=== PATIENT | male | born 1980 | race African-American/Black ===

== ENCOUNTER 2019-08-01 13:35 | Emergency (ER) | payer OTHER ==
[~2019-08-01] VITALS: Ht 170.2 cm; Wt 70.3 kg
[2019-08-01] MEDS ORDERED: HUMULIN R100 UNIT/M IV PUSH (13:45)
[2019-08-01 14:08] LABS: ABSOLUTE NEUTROPHILS 4.9 thou/uL (1.4-8.2); BASOPHILS 1.7 % (0.0-2.0); EOSINOPHILS 1.6 % (0.0-3.0); HEMATOCRIT 38.4 % (42.0-52.0); HEMOGLOBIN 12.5 gm/dL (14.0-18.0); LYMPHOCYTES 30.7 % (24.0-44.0); MCH 26.5 pg (26.0-34.0); MCHC 32.5 g/dL (28.0-37.0); MCV 81.5 fL (80.0-100.0); MONOCYTES 6.2 % (1.0-8.0); PLATELET COUNT 359 thou/uL (150-400); POLYS 59.8 % (36.0-66.0); RBC 4.71 mil/uL (4.50-6.00); RDW 13.9 % (10.5-14.5); WBC 8.3 thou/uL (4.0-11.0)
[2019-08-01 14:16] LABS: CALCIUM 9.4 mg/dL (8.5-10.1); CREATININE 2.8 mg/dL (0.7-1.3); POTASSIUM 3.1 mmol/L (3.5-5.1)
[2019-08-01 14:22] LABS: ALBUMIN 3.7 g/dL (3.4-5.0); TOTAL BILIRUBIN 0.1 mg/dL (<0.1-1.0)
[2019-08-01 17:40] VITALS: BP 129/77
--- NOTE | 2019-08-02 08:02 | EKG ---
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1980 Requested By: Kvng Daugherty Order Number: [id number] MD: Ruddy Ridley Measurements Intervals [place] Rate: 96 P: 78 IN: 115 QRS: 76 QRSD: 86 T: -33 QT: 375 QTc: 474 Interpretive Statements Sinus rhythm Borderline short IN interval Probable left atrial enlargement Probable left ventricular hypertrophy Borderline T abnormalities, inferior leads No previous ECG available for comparison Electronically Signed On 08-02-2019 8:02:01 CDT by Ruddy Ridley [email or web address] <ELECTRONICALLY SIGNED> By: Ruddy Ridley MD 08/02/19 0802 D: 09/1448 1449 Ruddy Ridley MD /JUAN CARLOS
== END 2019-08-01 17:40 | disposition home or self-care (01) ==
LOC: ER 13:35
PROVIDERS: Physician Assistant
DX: N17.9 Acute kidney failure, unspecified (principal); E10.65 Type 1 diabetes mellitus with hyperglycemia; R11.10 Vomiting, unspecified; F17.210 Nicotine dependence, cigarettes, uncomplicated; Z88.5 Allergy status to narcotic agent

== ENCOUNTER 2020-02-27 05:10 | Emergency (ER) | payer BC, OTHER ==
[~2020-02-27] VITALS: Ht 170.2 cm; Wt 70.3 kg
[~2020-02-27 05:10] MED LIST: HUMULIN R100 UNIT/M IV PUSH
[2020-02-27 05:53] LABS: ABSOLUTE NEUTROPHILS 7.5 thou/uL (1.4-8.2); BASOPHILS 1.2 % (0.0-2.0); EOSINOPHILS 0.8 % (0.0-3.0); HEMATOCRIT 42.5 % (42.0-52.0); HEMOGLOBIN 13.7 gm/dL (14.0-18.0); LYMPHOCYTES 16.2 % (24.0-44.0); MCH 25.9 pg (26.0-34.0); MCHC 32.2 g/dL (28.0-37.0); MCV 80.4 fL (80.0-100.0); MONOCYTES 2.8 % (1.0-8.0); PLATELET COUNT 366 thou/uL (150-400); RBC 5.29 mil/uL (4.50-6.00); RDW 15.3 % (10.5-14.5); WBC 9.4 thou/uL (4.0-11.0)
[2020-02-27 06:01] LABS: ANION GAP 14 mmol/L (7-16); BUN 26 mg/dL (7-18); CALCIUM 9.2 mg/dL (8.5-10.1); CHLORIDE 101 mmol/L (98-107); CO2 23 mmol/L (21-32); CREATININE 2.2 mg/dL (0.7-1.3); GLUCOSE 241 mg/dL (74-106); POTASSIUM 5.3 mmol/L (3.5-5.1); SODIUM 138 mmol/L (136-145)
[2020-02-27 06:12] LABS: ALBUMIN 4.3 g/dL (3.4-5.0); LIPASE 180 U/L (73-393); SGOT 36 U/L (15-37); SGPT 37 U/L (30-65); TOTAL BILIRUBIN 0.2 mg/dL (<0.1-1.0); TROPONIN-I <0.06 ng/mL (<0.06)
--- NOTE | 2020-02-27 08:37 | EKG ---
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1980 Requested By: Ludwin Gonzalez Order Number: [id number] MD: Vin Jackson Measurements Intervals [place] Rate: 116 P: 72 [place]: 116 QRS: 79 QRSD: 79 T: 18 QT: 310 QTc: 431 Interpretive Statements Sinus tachycardia Probable left ventricular hypertrophy Compared to ECG 08/01/2019 14:49:42 T wave abnormalities no longer present Electronically Signed On 02-27-2020 8:35:45 CDT by Vin Jackson [email or web address] <ELECTRONICALLY SIGNED> By: Vin Jackson MD, LOCATED WITHIN [facility] 02/27/20 0835 6 Vin Jackson MD, FACC /EPI
[2020-02-27] MEDS ORDERED: REGLAN 5 MG TAB5 MG PO (11:36)
[2020-02-27] MEDS ORDERED: ZOFRAN ODT4 MG PO (11:58)
[2020-02-27 12:18] VITALS: BP 169/102
== END 2020-02-27 12:19 | disposition home or self-care (01) ==
LOC: ER 05:10
PROVIDERS: Emergency Medicine
DX: E10.43 Type 1 diabetes mellitus with diabetic autonomic (poly)neuropathy (principal); K31.84 Gastroparesis; R11.2 Nausea with vomiting, unspecified; F17.210 Nicotine dependence, cigarettes, uncomplicated; Z79.4 Long term (current) use of insulin; Z88.6 Allergy status to analgesic agent

== ENCOUNTER 2020-03-02 15:22 | Emergency (ER) | payer BC, OTHER ==
[~2020-03-02] VITALS: Ht 172.7 cm; Wt 68.5 kg
[~2020-03-02 15:22] MED LIST changes: +REGLAN 5 MG TAB5 MG PO; +ZOFRAN ODT4 MG PO
[2020-03-02] MEDS ORDERED: NAPROSYN500 MG PO (16:44)
[2020-03-02 17:00] VITALS: BP 123/81
== END 2020-03-02 17:01 | disposition home or self-care (01) ==
LOC: ER 15:22
DX: M70.831 Other soft tissue disorders related to use, overuse and pressure, right forearm (principal); E10.9 Type 1 diabetes mellitus without complications; F17.210 Nicotine dependence, cigarettes, uncomplicated; Z79.899 Other long term (current) drug therapy; Z88.8 Allergy status to other drugs, medicaments and biological substances; Y93.89 Activity, other specified

== ENCOUNTER 2021-01-06 10:07 | Emergency (ER) | payer OTHER ==
[~2021-01-06] VITALS: Ht 170.2 cm; Wt 69.0 kg
[~2021-01-06 10:07] MED LIST changes: +NAPROSYN500 MG PO
[2021-01-06 12:01] VITALS: BP 122/70
== END 2021-01-06 12:01 | disposition home or self-care (01) ==
LOC: ER 10:07
DX: M54.12 Radiculopathy, cervical region (principal); M54.16 Radiculopathy, lumbar region; E10.9 Type 1 diabetes mellitus without complications; F17.210 Nicotine dependence, cigarettes, uncomplicated; Z79.4 Long term (current) use of insulin; Z79.899 Other long term (current) drug therapy; Z88.8 Allergy status to other drugs, medicaments and biological substances

== ENCOUNTER 2021-03-25 10:53 | Emergency (ER) | payer OTHER ==
[~2021-03-25] VITALS: Ht 170.2 cm; Wt 71.2 kg
[2021-03-25 11:37] LABS: BASOPHILS 0.9 % (0.0-2.0); EOSINOPHILS 4.2 % (0.0-3.0); HEMATOCRIT 38.8 % (42.0-52.0); HEMOGLOBIN 12.3 gm/dL (14.0-18.0); LYMPHOCYTES 41.8 % (24.0-44.0); MCH 25.5 pg (26.0-34.0); MCHC 31.7 g/dL (28.0-37.0); MCV 80.4 fL (80.0-100.0); MONOCYTES 5.7 % (1.0-8.0); PLATELET COUNT 319 thou/uL (150-400); POLYS 47.4 % (36.0-66.0); RBC 4.83 mil/uL (4.50-6.00); RDW 15.3 % (10.5-14.5); WBC 8.5 thou/uL (4.0-11.0)
[2021-03-25 11:54] LABS: CALCIUM 8.6 mg/dL (8.5-10.1); CREATININE 2.3 mg/dL (0.7-1.3); POTASSIUM 3.9 mmol/L (3.5-5.1)
[2021-03-25 11:56] LABS: ALBUMIN 3.3 g/dL (3.4-5.0); MAGNESIUM 1.9 mg/dL (1.8-2.4); TOTAL BILIRUBIN 0.1 mg/dL (0.2-1.0); TOTAL PROTEIN 7.1 g/dL (6.4-8.2)
[2021-03-25 12:32] LABS: URINE BILIRUBIN NEGATIVE (Negative); URINE BLOOD TRACE (Negative); URINE CLARITY CLEAR; URINE COLOR YELLOW; URINE GLUCOSE-RANDOM* 3+ (Negative); URINE KETONES NEGATIVE (Negative); URINE LEUKOCYTES-REFLEX NEGATIVE (Negative); URINE NITRITE-REFLEX NEGATIVE (Negative); URINE PROTEIN (DIPSTICK) 2+ (Negative); URINE UROBILINOGEN 0.2 E.U./dl (0.2-1.0)
[2021-03-25 12:41] LABS: BACTERIA-REFLEX 1-9 Few /HPF (None Seen); CASTS None Seen /LPF (None Seen); CRYSTALS None Seen /LPF (None Seen); SQUAMOUS 0-3 Few /LPF (0-3); URINE RBC None Seen /HPF (NONE SEEN); URINE WBC-REFLEX 0-5 Rare /HPF (0-5)
[2021-03-25 13:15] VITALS: BP 150/96
== END 2021-03-25 13:23 | disposition home or self-care (01) ==
LOC: ER 10:53
PROVIDERS: Emergency Medicine
DX: E10.649 Type 1 diabetes mellitus with hypoglycemia without coma (principal); H53.8 Other visual disturbances; F17.210 Nicotine dependence, cigarettes, uncomplicated; Z98.890 Other specified postprocedural states; Z79.4 Long term (current) use of insulin; Z88.6 Allergy status to analgesic agent

== ENCOUNTER 2021-09-11 04:23 | Emergency (ER) | payer OTHER ==
[~2021-09-11] VITALS: Ht 170.2 cm; Wt 70.3 kg
--- NOTE | ~2021-09-11 | EMS ---
[place] [address] EMS Patient Care Report Name: SUMAN VANESSA Room #: DEP CORRIE Watson#: [id number] Admission: 09/11/21 Attend Phys: Discharge: 09/11/21 Date of : [birth year] Report #: [id number] THIS REPORT FOR: //name// Report Transmitted: 09/11/2021 06:04 EMS Care Summary [place], [place] Incident [id number] @ 09/11/2021 03:40 Incident Location [address] [place] [address] Patient SUMAN VANESSA Male, 41 Years 1980 Patient Address [address] [place] [address] Patient History Diabetes, Patient Allergies Penicillin allergy,Hydrocodone, Patient Medications Insulin, Chief Complaint HYPOGLYCEMIA Disposition Transported Lights/[place]yl[place] Dispatch Reason Diabetic Problem Transported To [facility] Narrative M42 ARRIVES TO FIND 41 Y/O M PT WITH ALTERED LEVEL OF CONSCIOUSNESS. ASSESSMENTS AND TREATENTS NOTED. PT MOVED TO COT VIA [facility]. PT MOVED TO AMBULANCE. PT TRANSPORTED. M42 ARRIVES AT DESTINATION. PT MOVED TO ROOM IN ED. PT MOVED TO BED IN ROOM VIA [address] [address] EMS Patient Care Report Name: SUMAN VANESSA Room #: DEP CORRIE KillianFreddy#: [id number] Admission: 09/11/21 Attend Phys: Discharge: 09/11/21 Date of : [birth year] Report #: [id number] DRAWSHEET METHOD. PT CARE TRANSFERRED. M42 RETURNS TO SERVICE. Initial Vitals @04:17P: 102,R: 22,BP: 223/131,GCS: 7,SpO2: 98,Revised Trauma: 10, @03:45Glucose: 23, @04:18Glucose: -1, @04:11P: 106,R: 26,Pain: 0/10,GCS: 7,SpO2: 98,Revised Trauma: 10, Assessments @03:45MENTAL:Combative,SKIN:Diaphoresis,HEENT:LUNG SOUNDS:ABDOMEN:PELVIS//GI:EXTREMITIES:PULSE:NEURO:@04:17MENTAL:Unresponsive,SK IN:No Abnormalities,HEENT:Head/Face: No Abnormalities,Eyes: No Abnormalities,Neck/Airway: No Abnormalities,LUNG SOUNDS:General: No Abnormalities,Left Upper: No Abnormalities,Right Upper: No Abnormalities,Left Lower: No Abnormalities,Right Lower: No Abnormalities,ABDOMEN:General: No Abnormalities,Left Upper: No Abnormalities,Right Upper: No Abnormalities,Left Lower: No Abnormalities,Right Lower: No Abnormalities,PELVIS//GI:No Abnormalities,EXTREMITIES:Left Arm: No Abnormalities,Right Arm: No Abnormalities,Left Leg: No Abnormalities,Right Leg: No Abnormalities,PULSE:NEURO:No Abnormalities, Impression Diabetic Hypoglycemia Procedures @03:45 ALS Assessment Response: UnchangedSucceeded @03:51 3-Lead ECG Response: UnchangedSucceeded @03:48 IV Therapy - Saline Lock 0cc (18 ga) Site: Forearm-Left Response: UnchangedFailed @03:47 IV Therapy - Saline Lock 0cc (18 ga) Site: Forearm-Left Response: UnchangedFailed @03:49 IV Therapy - Saline Lock 0cc (20 ga) Site: Antecubital-Left Response: UnchangedFailed @03:51 Dextrose 10% - 25 Milliliters (ml) - Intraosseous (IO) Response: Unchanged @03:51 Intraosseous - Normal Saline (.9% NaCl) 0cc (EZ-IO (Yellow 45mm)) Site: AT-Idssrob-Vvll Response: UnchangedFailed Timeline 03:38,Call Received 03:38,Dispatch Notified 03:40,Dispatched 03:41,En Route 03:44,On Scene [address] [address] EMS Patient Care Report Name: OTFSUMAN Room #: LIO Watson#: [id number] Admission: 09/11/21 Attend Phys: Discharge: 09/11/21 Date of : [birth year] Report #: [id number] 03:45,At Patient 03:45,ALS Assessment,Response: UnchangedSucceeded, 03:45,BP: / M,PULSE: ,RR: R,SPO2: Ox,ETCO2: ,B,PAIN: ,GCS: , 03:47,IV Therapy - Saline Lock 0cc 18 ga Site: Forearm-Left,Response: UnchangedFailed, 03:48,IV Therapy - Saline Lock 0cc 18 ga Site: Forearm-Left,Response: UnchangedFailed, 03:49,IV Therapy - Saline Lock 0cc 20 ga Site: Antecubital-Left,Response: UnchangedFailed, 03:51,3-Lead ECG,Response: UnchangedSucceeded, 03:51,Dextrose 10% - 25 Milliliters (ml) - Intraosseous (IO),Response: Unchanged 03:51,Intraosseous - Normal Saline (.9% NaCl) 0cc EZ-IO (Yellow 45mm) Site: NE-Tmhkhfm-Ljhg,Response: UnchangedFailed, 04:11,BP: 202/ M,PULSE: 106,RR: 26 R,SPO2: 98 Ox,ETCO2: ,BG: ,PAIN: 0,GCS: 7, 04:12,Depart Scene 04:17,BP: 223/131 M,PULSE: 102,RR: 22 R,SPO2: 98 Ox,ETCO2: ,BG: ,PAIN: ,GCS: 7, 04:18,BP: / M,PULSE: ,RR: R,SPO2: Ox,ETCO2: ,BG: -1,PAIN: ,GCS: , 04:20,At Destination 04:38,Call Closed Disclaimer v1.1 Copyright 2020 [employer] This EMS Care Summary contains data elements from the applicable legal record (which may be displayed differently). It is designed to provide pertinent information for the following purposes: continuity of care, clinical quality, and state data reporting. The complete legal record is available to ED staff and administrators of the receiving hospital in [employer]'s Patient Tracker. All data is provided "as is."
[2021-09-11] MEDS ORDERED: GLUCAGON EMERGEN1 MG IM (05:13)
[2021-09-11 05:35] LABS: ABSOLUTE NEUTROPHILS 5.7 thou/uL (1.4-8.2); BASOPHILS 1.2 % (0.0-2.0); EOSINOPHILS 3.7 % (0.0-3.0); HEMATOCRIT 42.1 % (42.0-52.0); HEMOGLOBIN 13.2 gm/dL (14.0-18.0); LYMPHOCYTES 32.3 % (24.0-44.0); MCH 25.8 pg (26.0-34.0); MCHC 31.4 g/dL (28.0-37.0); MCV 82.1 fL (80.0-100.0); MONOCYTES 4.5 % (1.0-8.0); PLATELET COUNT 401 thou/uL (150-400); POLYS 58.3 % (36.0-66.0); RBC 5.13 mil/uL (4.50-6.00); RDW 14.8 % (10.5-14.5); WBC 9.9 thou/uL (4.0-11.0)
[2021-09-11 05:41] LABS: CALCIUM 8.4 mg/dL (8.5-10.1); CREATININE 2.5 mg/dL (0.7-1.3); POTASSIUM 4.2 mmol/L (3.5-5.1)
[2021-09-11 05:47] LABS: ALBUMIN 3.2 g/dL (3.4-5.0); TOTAL BILIRUBIN 0.1 mg/dL (0.2-1.0); TOTAL PROTEIN 6.9 g/dL (6.4-8.2)
[2021-09-11] MEDS ORDERED: CEPHALEXIN500 MG PO (05:57)
[2021-09-11 06:13] VITALS: BP 151/82
[2021-09-11] MEDS ORDERED: NORCO5 PO (06:23)
--- NOTE | 2021-09-11 07:12 | EKG ---
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 09/11/21 [id number] Rashad Grier MD, FACC /EPI
== END 2021-09-11 06:28 | disposition home or self-care (01) ==
LOC: ER 04:23
PROVIDERS: Emergency Medicine
DX: E10.649 Type 1 diabetes mellitus with hypoglycemia without coma (principal); F17.210 Nicotine dependence, cigarettes, uncomplicated; Z98.890 Other specified postprocedural states; Z79.4 Long term (current) use of insulin; Z88.5 Allergy status to narcotic agent; Z88.6 Allergy status to analgesic agent